=== PATIENT | male | born 1995 | race Caucasian/White ===

== ENCOUNTER 2023-06-16 14:55 | Observation (INO) | payer SELFPAY ==
[2023-06-16] VITALS (7 sets, daily range): BP systolic 134–188; BP diastolic 84–111; PULSE 68–93; RESP 16–17; TEMP 36.2–36.6; O2SAT 93–99; BMI 34.5
--- NOTE | 2023-06-16 15:56 | CT_ITS ---
STUDY: CT ABDOMEN AND PELVIS WITH CONTRAST REASON FOR EXAM: Male, 28 years old. Abdominal pain diarrhea RADIATION DOSAGE (If Supplied By Facility): CTDIvol = ( 14.84 ) mGy, DLP = ( 1320.98 ) mGycm TECHNIQUE: Transaxial images were obtained from the dome of the diaphragm to the symphysis pubis without oral contrast. IV 100mL Isovue-300 was administered. Sagittal and coronal images were reconstructed. Individualized dose optimization techniques were used for this CT. COMPARISON: None. FINDINGS: The visualized lung bases are unremarkable. The visualized portions of the heart are within normal limits. Normal liver. Normal gallbladder and extrahepatic biliary system. Normal spleen. Normal pancreas. Normal bilateral adrenal glands. Normal right kidney. Normal left kidney. Normal visualized stomach. Dilated small intestine with air-fluid levels. Possible transitional point in the distal ileum. This may be related to an ileus. A small bowel obstruction cannot be excluded. Normal colon. The appendix is visualized and appears normal. Normal abdominal aorta. Normal inferior vena cava. Normal retroperitoneum. Normal urinary bladder. Normal abdominal wall. Spondylolysis of L5. CT/Abdomen/Pelvis W IV Cont ONLY IMPRESSION: Dilated small intestine with air-fluid levels. Possible transitional point in the distal ileum. Follow-up is needed. Electronically Signed: Royer Chopra DO at 16:48 EST ,
--- NOTE | 2023-06-16 15:57 | EDS_ITS ---
HPI HPI - GI History of Present Illness Chief Complaint: Abd Pain Informant: patient and parent Narrative Narrative: 28-year-old male presenting to the emergency room with abdominal pain nausea and diarrhea. Patient states that yesterday evening he began to have back ache and generalized myalgias. This morning he had nausea and generalized abdominal discomfort. He has had some intermittent diarrhea and abdominal cramping. Describes the abdominal discomfort is generalized waxing and waning. Reports a near syncopal episode while trying to have a bowel movement earlier in the day. He states that he has had several episodes where he felt like he needed to have a bowel movement and went to the bathroom but did not go. No fevers. No headache or rashes. He notes that his urine is darker than normal. Patient denies any known medical problems or prior surgeries. He last had Tylenol Motrin this morning. PFSH PFSH Medical History no medical history no medical history Home Medications NK 06/16/23 [History Last Taken Unknown] Allergy/AdvReac Type Severity Reaction Status Date / Time No Known Allergies Allergy Verified 06/16/23 14:58 Surgical History no surgical history no surgical history Social History Smoking Status: Never smoker ROS ROS ED Constitutional Constitutional ED: Reports chills; Denies fever(s) or weight loss Eyes Eyes: Denies change in vision or diplopia ENT ENT ED: Denies ear pain, rhinorrhea or sore throat Cardiovascular Cardiovascular: Denies chest pain, orthopnea, palpitations or racing heartbeat Respiratory/Chest Respiratory/Chest: Denies cough, dyspnea or orthopnea Gastrointestinal Gastrointestinal: Reports abdominal pain, diarrhea and nausea; Denies vomiting Genitourinary Genitourinary ED: Denies dysuria, hematuria or urinary frequency Musculoskeletal Musculoskeletal: Reports back pain and myalgias; Denies arthralgias or neck pain Integumentary Denies abscess or rash Neurologic Neurologic: Denies headache(s) or weakness Psychiatric Psychiatric: Denies anxiety, depression, suicidal ideation or suicidal thoughts Endocrine Endocrinology: Denies polydipsia, polyphagia or polyuria Allergic/Immunologic Allergic/Immunologic ED: Denies mouth swelling, tongue swelling or urticaria EXAM Physical Exam Const Vital Signs: 06/16/23 14:56 06/16/23 16:56 06/16/23 16:56 Temperature 97.2 F L Temperature Source Temporal Pulse Rate 93 87 87 Respiratory Rate 16 16 16 Blood Pressure 148/111 H 151/90 H 151/90 H Blood Pressure Mean 123 110 110 Pulse Ox 99 93 98 Oxygen Delivery Method Room Air Room Air Positive well nourished and well developed General Appearance ED: well developed HEENT Reports normocephalic, head/scalp atraumatic and moist mucous membranes Eyes PERRL and EOMs intact bilaterally Neck no lymphadenopathy, supple and no JVD Resp normal respiratory effort and clear to auscultation bilaterally Cardio regular rate, regular rhythm and no murmurs GI non-distended Auscultation: normoactive bowel sounds Palpation: soft and tender other (Diffuse abdominal tenderness to palpation); Negative for guarding or rebound tenderness present Back/Spine no CVA tenderness and normal ROM Extremity normal to inspection General Extremety ED: Negative for edema General Extremity: Negative for edema Neuro oriented x3 and CN's II-XII intact bilaterally Sensorium / Orientation: alert Motor Exam: strength 5/5 throughout Psych mental status grossly normal Mood & Affect: Negative for depressed or tearful Skin no rashes or lesions noted and no wounds MDM MDM MDM Narrative Medical decision making narrative: Basic blood work showed a slight elevation of ALT and AST. Normal white count of 7.4. Urinalysis was. CT abdomen pelvis shows air-fluid levels and distention of the small bowel. There is liquid in the large intestine. Ileus versus small bowel obstruction. Patient received IV fluids Toradol and Zofran and feels significantly better. I spoke with general surgery who is evaluated the patient. Her plan will be to keep the patient n.p.o. and hydrated tonight. Medicine will be admitting. COVID and influenza were sent and are negative. Of note while reviewing the patient's labs and CT findings he notes that he actually developed myalgias and symptomatology beginning on Friday and Friday. Lab Data Attestation: I reviewed the patient's lab results. Labs: Laboratory Results - last 24 hr 06/16/23 06/16/23 15:00 16:48 WBC 7.4 RBC 5.76 Hgb 16.2 Hct 47.7 MCV 82.8 MCH 28.1 MCHC 34.0 RDW Std Deviation 39.0 RDW Coeff of Bryant 12.9 Plt Count 254 MPV 9.2 Immature Gran % (Auto) 0.300 Neut % (Auto) 82.2 H Lymph % (Auto) 9.5 L [place] % (Auto) 7.6 Eos % (Auto) 0.1 Baso % (Auto) 0.3 Absolute Neuts (auto) 6.1 Absolute Lymphs (auto) 0.70 L Nucleated RBC % 0 Sodium 134 L Potassium 4.1 Chloride 102 Carbon Dioxide 26.0 Anion Gap 6 BUN 14 Creatinine 0.99 Est GFR (MDRD) Af Amer 114 Est GFR (MDRD) Non-Af 94 BUN/Creatinine Ratio 14.1 Glucose 135 H Calcium 9.4 Total Bilirubin 0.60 Direct Bilirubin 0.17 AST 47 H ALT 114 H Alkaline Phosphatase 100 Total Protein 8.2 Albumin 3.6 Globulin 4.6 H Lipase 15 Urine Color Yellow Urine Clarity Clear Urine pH 6.5 Ur Specific [place] 1.010 Urine Protein 30 H Urine Glucose (UA) Normal Urine Ketones 50 H Urine Occult Blood 10 H Urine Nitrite Negative Urine Bilirubin Negative Urine Urobilinogen 1 H Ur Leukocyte Esterase Negative Urine RBC 0-5 SEEN Urine WBC 0 SEEN Ur Squamous Epith Cells 0 SEEN Urine Bacteria 0 SEEN Urine Mucus 0 SEEN Radiography Diagnostic Testing: Clinical Impression(s) from Imaging Studies Abdomen/Pelvis CT 06/16/23 15:56 IMPRESSION: Dilated small intestine with air-fluid levels. Possible transitional point in the distal ileum. Follow-up is needed. Electronically Signed: Royer Chopra DO at 16:48 EST Reading Location ID and State: [facility] / [place] Tel [phone], Service support , Differential Diagnosis Abdominal Pain: Appendicitis, Cholecystitis, Pancreatitis, Bowel obstruction and UTI Management Discussion w/another healthcare provider: Hospitalist and Production Cost Estimator (Surgery ([facility])) Discharge Plan Dx/Rx/DC Orders Clinical Impression: Acute viral syndrome, Diarrhea, Ileus, Abdominal pain Disposition Disposition: Acute Care Hospital [facility]
[2023-06-16] MEDS: Ketorolac 30 MG/ML Syringe IV (16:04)
[2023-06-16] MEDS: 0.9% Normal Saline (1000mL) 1,000 ML 1000 ML IV (16:04)
[2023-06-16] MEDS: Ondansetron 4 MG/2 ML Vial IV (16:05)
[2023-06-16 16:07] LABS: Absolute Neutrophil Count 6.1 X10^3/uL (2.0-7.7); Basophil# 0.02 X10^3/uL; Basophil% 0.3 % (0-1); Eosinophil# 0.01 X10^3/uL; Eosinophils% 0.1 % (0-5); Hematocrit 47.7 % (40-54); Hemoglobin 16.2 g/dL (13.0-16.5); Lymphocyte % 9.5 % (19-41); Mean Corpuscular Hgb 28.1 pg (27.0-32.0); Mean Corpuscular Volume 82.8 fL (80-94); Mean Platelet Vol. 9.2 fl (6.2-12.0); Monocyte# 0.56 X10^3/uL; Monocyte% 7.6 % (0-10); NRBC Flagged by Analyzer 0 % (0-5); Neutrophil # 6.05 X10^3/uL (2.7-7.7); Neutrophil % 82.2 % (47-70); Platelet Count 254 K/mm3 (150-450); RBC Distribution Width CV 12.9 % (11.6-14.6); Red Blood Count 5.76 M/mm3 (4.6-6.2); White Blood Count 7.4 K/mm3 (4.4-11.0)
[2023-06-16 16:22] LABS: AST(SGOT) 47 U/L (15-37); Alanine Aminotransfer ALT/SGPT 114 U/L (16-61); Albumin, Serum 3.6 g/dL (3.2-5.0); Alkaline Phosphatase 100 U/L (45-117); Anion Gap 6 (5-15); BUN 14 mg/dL (7-18); BUN/Creat Ratio 14.1 RATIO (10-20); Bilirubin, Direct 0.17 mg/dL (0.00-0.30); Calcium,Total 9.4 mg/dL (8.5-10.1); Chloride 102 mmol/L (98-107); Creatinine, Serum 0.99 mg/dL (0.70-1.30); EST Glomerular Filtration Rate 94 mL/min (>60); Est Glom Filt Rate - Afr Amer 114 mL/min (>60); Globulin 4.6 g/dL (2.2-4.2); Glucose 135 mg/dL (74-106); Lipase 15 U/L (13-75); Potassium 4.1 mmol/L (3.5-5.1); Protein, Total 8.2 g/dL (6.4-8.2); Sodium Level 134 mmol/L (136-145)
[2023-06-16 16:52] LABS: Bacteria 0 SEEN /hpf (None Seen); Mucous, Urine 0 SEEN /hpf (<or=2+); Squamous Epithelial Cells - UA 0 SEEN /hpf (0-5); White Blood Cells 0 SEEN /hpf (0-5)
[2023-06-16 17:00] LABS: Color, Urine Yellow (Yellow); Glucose, Dipstick Normal (Normal); Ketone-Dipstick 50 mg/dl (Negative); Leukocyte Esterase-Dipstick Negative /ul (Negative); Nitrite-Dipstick Negative (Negative); Occult Blood-Urine 10 /ul (Negative); Protein-Dipstick 30 mg/dl (Negative); Urine Bilirubin Dipstick Negative (Negative); Urine Clarity Clear (Clear); Urine Urobilinogen 1 mg/dl (Normal); Urine pH 6.5 (5.0 - 8.0)
[2023-06-16 17:24] LABS: Red Blood Cells-Urine 0-5 SEEN /hpf (0-5)
--- NOTE | 2023-06-16 17:35 | EX.PCM.CON.S ---
Assessment & Plan Assessment/Plan (1) Ileus: PLAN: The patient had labs which were normal except for a left shift. The patient also had a CT scan which showed dilated small bowel loops with air-fluid level. It was unsure if there was a transition point. There is gas and stool in his colon. Patient has never had any surgery in the past. Patient also says this started several days ago with myalgias and chills so this may be viral. Patient may be having ileus due to viral syndrome. I will check a hepatitis panel and he is also being checked for COVID and flu. Keep the patient n.p.o. and start IV fluids and recheck a KUB in the morning. Continue to monitor. Acosta Sharma MD Pager: [facility] [address] [place] [address], [address] [place] [address] Office: HPI Consult Data Date of Consult: 06/16/23 HPI Narrative HPI Narrative: MICA HALEY, is a 28 M who presents with abdominal pain. Patient says this started on Friday when he started experiencing back pain and chills. He does report that he has a cough that he says is nonproductive. He says that he does not have objective fever. He says that this morning his abdomen started hurting and he became nauseous with no vomiting. He said he had 3 bouts of diarrhea this morning and another one later this morning. He has been passing occasional gas throughout the day. He reports abdominal pain is diffuse and not localized. Patient also had a syncopal episode or near syncopal episode. [facility] Medical History no medical history Allergy/AdvReac Type Severity Reaction Status Date / Time No Known Allergies Allergy Verified 06/16/23 14:58 Surgical History no surgical history Social History Smoking Status: Never smoker ROS Constitutional Constitutional: Reports anorexia, chills and fatigue; Denies fever(s) Eyes Eyes: Denies change in vision ENT HEENT: Denies abnormal hearing Cardiovascular Cardiovascular: Denies chest pain Respiratory/Chest Respiratory/Chest: Reports cough; Denies dyspnea, productive cough or shortness of breath at rest Gastrointestinal Gastrointestinal: Reports abdominal pain, bloating, diarrhea and nausea; Denies change in bowel habits, rectal bleeding or vomiting Genitourinary Genitourinary: Denies change in urinary stream Musculoskeletal Musculoskeletal: Denies abnormal gait Integumentary Integumentary: Denies jaundice Neurologic Neurologic: Reports dizziness Psychiatric Psychiatric: Denies anxiety Endocrine Endocrinology: Denies flushing Lab / Micro Data 06/16/23 15:00 06/16/23 15:00 Labs: Laboratory Results - last 24 hr 06/16/23 15:00: WBC 7.4, RBC 5.76, Hgb 16.2, Hct 47.7, MCV 82.8, MCH 28.1, MCHC 34.0, RDW Std Deviation 39.0, RDW Coeff of Bryant 12.9, Plt Count 254, MPV 9.2, Immature Gran % (Auto) 0.300, Neut % (Auto) 82.2 H, Lymph % (Auto) 9.5 L, [place] % (Auto) 7.6, Eos % (Auto) 0.1, Baso % (Auto) 0.3, Absolute Neuts (auto) 6.1, Absolute Lymphs (auto) 0.70 L, Nucleated RBC % 0, Sodium 134 L, Potassium 4.1, Chloride 102, Carbon Dioxide 26.0, Anion Gap 6, BUN 14, Creatinine 0.99, Est GFR (MDRD) Af Amer 114, Est GFR (MDRD) Non-Af 94, BUN/Creatinine Ratio 14.1, Glucose 135 H, Calcium 9.4, Total Bilirubin 0.60, Direct Bilirubin 0.17, AST 47 H, ALT 114 H, Alkaline Phosphatase 100, Total Protein 8.2, Albumin 3.6, Globulin 4.6 H, Lipase 15 06/16/23 16:48: Urine Color Yellow, Urine Clarity Clear, Urine pH 6.5, Ur Specific [place] 1.010, Urine Protein 30 H, Urine Glucose (UA) Normal, Urine Ketones 50 H, Urine Occult Blood 10 H, Urine Nitrite Negative, Urine Bilirubin Negative, Urine Urobilinogen 1 H, Ur Leukocyte Esterase Negative, Urine RBC 0-5 SEEN, Urine WBC 0 SEEN, Ur Squamous Epith Cells 0 SEEN, Urine Bacteria 0 SEEN, Urine Mucus 0 SEEN Imagaing Radiology Impression Abdomen/Pelvis CT 06/16/23 15:56 IMPRESSION: Dilated small intestine with air-fluid levels. Possible transitional point in the distal ileum. Follow-up is needed. Electronically Signed: Royer Chopra DO at 16:48 EST ,
--- NOTE | 2023-06-16 17:55 | HP.PCM.HOS_ITS ---
HPI - General General Date of Admission: 06/16/23 Date of Service: 06/16/23 Chief Complaint: Abdominal pain, myalgias HPI Narrative MICA HALEY, is a 28 M with history of smokeless tobacco use who presented to [facility] with abdominal pain, nausea, and diarrhea. He has been feeling achy and having generalized malaise as well as some chills and sweats and this morning he had nausea and generalized abdominal discomfort. Also had some intermittent diarrhea with last episode this morning. Abdominal discomfort is generalized and waxing and waning. Had a near syncopal episode while trying to have bowel movement earlier in the day. Has had several periods where he thought he had have a bowel movement but has been unable to. In the ED CT abdomen pelvis showed air-fluid levels and distention of small bowel. He was given Toradol and Zofran and general surgery evaluated. Plan is for n.p.o., fluids, KUB in the a.m. Hospitalist contacted for admission. Evaluated patient at bedside and he reports feeling roughly the same as when he presented for may be slightly better, still is not had bowel movement. Pain in abdomen is still generalized and still feels somewhat achy. Has noted slight sore throat and sli ght dry cough over the past couple of days. Denies any other acute complaints [facility] Medical History no medical history Home Medications NK 06/16/23 [History Last Taken Unknown] Allergy/AdvReac Type Severity Reaction Status Date / Time No Known Allergies Allergy Verified 06/16/23 14:58 Surgical History no surgical history Social History Smoking Status: Never smoker ROS ROS Narrative General: Has felt like he has had chills and sweats HENT: Denies headache, denies stuffy nose, has had slight sore throat EYES: Denies changes in vision Resp: Slight dry cough, denies shortness of breath Cardiac: Denies chest pain GI: Generalized abdominal pain with nausea and diarrhea but no BM since this morning : Has been going often Extremity: Denies swelling MSK: Feels somewhat generally weak Neuro: Denies any numbness/tingling Heme: Denies any bleeding or bruising Skin: Denies rashes Psychiatric: No complaints voiced Vital Signs Vital Signs Vital Signs: 06/16/23 14:56 06/16/23 16:56 06/16/23 16:56 Temperature 97.2 F L Temperature Source Temporal Pulse Rate 93 87 87 Respiratory Rate 16 16 16 Blood Pressure 148/111 H 151/90 H 151/90 H Blood Pressure Mean 123 110 110 Pulse Ox 99 93 98 Oxygen Delivery Method Room Air Room Air Physical Exam Narrative General: Alert, oriented, no apparent distress HEENT: Atraumatic, normocephalic Eyes: Anicteric, normal conjunctiva, extraocular movements grossly intact Neck: Supple Respiratory: Clear to auscultation bilaterally, normal respiratory effort Cardiovascular: Regular rate and rhythm GI: Slightly distended without rebound, guarding, rigidity Extremities: No edema Musculoskeletal: Moving all extremities Neuro: No overt focal neurological deficits Skin: No rashes appreciated Psych: Cooperative Results Lab / Micro Data 06/16/23 15:00 06/16/23 15:00 Labs: Laboratory Results - last 24 hr 06/16/23 15:00: WBC 7.4, RBC 5.76, Hgb 16.2, Hct 47.7, MCV 82.8, MCH 28.1, MCHC 34.0, RDW Std Deviation 39.0, RDW Coeff of Bryant 12.9, Plt Count 254, MPV 9.2, Immature Gran % (Auto) 0.300, Neut % (Auto) 82.2 H, Lymph % (Auto) 9.5 L, [place] % (Auto) 7.6, Eos % (Auto) 0.1, Baso % (Auto) 0.3, Absolute Neuts (auto) 6.1, Absolute Lymphs (auto) 0.70 L, Nucleated RBC % 0, Sodium 134 L, Potassium 4.1, Chloride 102, Carbon Dioxide 26.0, Anion Gap 6, BUN 14, Creatinine 0.99, Est GFR (MDRD) Af Amer 114, Est GFR (MDRD) Non-Af 94, BUN/Creatinine Ratio 14.1, Glucose 135 H, Calcium 9.4, Total Bilirubin 0.60, Direct Bilirubin 0.17, AST 47 H, ALT 114 H, Alkaline Phosphatase 100, Total Protein 8.2, Albumin 3.6, Globulin 4.6 H, Lipase 15 06/16/23 16:48: Urine Color Yellow, Urine Clarity Clear, Urine pH 6.5, Ur Specific [place] 1.010, Urine Protein 30 H, Urine Glucose (UA) Normal, Urine Ketones 50 H, Urine Occult Blood 10 H, Urine Nitrite Negative, Urine Bilirubin Negative, Urine Urobilinogen 1 H, Ur Leukocyte Esterase Negative, Urine RBC 0-5 SEEN, Urine WBC 0 SEEN, Ur Squamous Epith Cells 0 SEEN, Urine Bacteria 0 SEEN, Urine Mucus 0 SEEN Imagaing Radiology Impression Abdomen/Pelvis CT 06/16/23 15:56 IMPRESSION: Dilated small intestine with air-fluid levels. Possible transitional point in the distal ileum. Follow-up is needed. Electronically Signed: Royer Chopra DO at 16:48 EST Reading Location ID and State: [facility] / [place] Tel [phone], Service support , Assessment & Plan Assessment/Plan (1) Abdominal pain: (2) Ileus: (3) Diarrhea: PLAN: Plan #Intestinal ileus -Seen on CT scan -Possibly viral in nature -NPO, IVF -I's and O's -Surgery consult -KUB in the morning -Not presently requiring NG tube #Myalgias, diarrhea, nausea -Additionally a dry cough with some sweats and chills -Sounds to have viral illness in nature -COVID and flu ordered, will also order respiratory panel #Elevated liver function tests -Very slightly elevated, hepatitis panel ordered #DVT ppx: Lovenox subcu Tish Herring MD Charges/Coding Visit Charges Inpatient E&M: 78978 Init Hosp L1
[2023-06-16] MEDS: 0.9% Normal Saline (1000mL) 1,000 ML 100 ML IV (21:11)
[2023-06-16] MEDS: hydrALAZINE 20 MG/ML Vial 10 MG IV (22:15)
[2023-06-17 02:51] VITALS: BP 145/65; PULSE 98; RESP 16; TEMP 36.9; O2SAT 95
--- NOTE | 2023-06-17 05:55 | RAD_ITS ---
INDICATION: ileus EXAMINATION/TECHNIQUE: X-RAY - XR Abdomen 1 View COMPARISON: CT abdomen and pelvis 06/16/2023. FINDINGS: Supine view portable. Moderately dilated small bowel. Similar to the prior day CT. Air noted in the colon, nondilated. Sensitivity for free air limited on supine view. No abnormal mass or calcification is seen. The lung bases were not included. RAD/Abdomen Single View (Portable) IMPRESSION: Dilated small bowel. Pattern may be consistent with ileus versus partial small bowel obstruction. Electronically Signed: Nadine Belcher MD at 8:03 EST ,
[2023-06-17] MEDS: 0.9% Normal Saline (1000mL) 1,000 ML 100 ML IV ×2 (07:02→17:04)
[2023-06-17 07:51] LABS: Absolute Lymphocyte Count 1.26 X10^3/uL (0.83-4.51); Absolute Neutrophil Count 4.2 X10^3/uL (2.0-7.7); Basophil# 0.03 X10^3/uL; Basophil% 0.4 % (0-1); Eosinophil# 0.08 X10^3/uL; Eosinophils% 1.2 % (0-5); Hemoglobin 13.2 g/dL (13.0-16.5); Lymphocyte # 1.26 X10^3/ul (0.83-4.51); Lymphocyte % 18.8 % (19-41); Mean Corpuscular Hgb 28.1 pg (27.0-32.0); Mean Corpuscular Volume 85.1 fL (80-94); Mean Platelet Vol. 9.1 fl (6.2-12.0); Monocyte# 1.16 X10^3/uL; Monocyte% 17.3 % (0-10); NRBC Flagged by Analyzer 0 % (0-5); Neutrophil # 4.18 X10^3/uL (2.7-7.7); Neutrophil % 62.2 % (47-70); Platelet Count 230 K/mm3 (150-450); RBC Distribution Width SD 40.7 fl (35.1-43.9); White Blood Count 6.7 K/mm3 (4.4-11.0)
[2023-06-17 07:52] VITALS: BP 123/84; PULSE 93; RESP 18; TEMP 37.1; O2SAT 96
[2023-06-17 08:22] LABS: ALB/GLOB Ratio 0.8 RATIO (0.9-2.4); AST(SGOT) 32 U/L (15-37); Alanine Aminotransfer ALT/SGPT 77 U/L (16-61); Albumin, Serum 2.8 g/dL (3.2-5.0); Alkaline Phosphatase 75 U/L (45-117); Anion Gap 6 (5-15); BUN 11 mg/dL (7-18); BUN/Creat Ratio 13.1 RATIO (10-20); Chloride 109 mmol/L (98-107); Creatinine, Serum 0.84 mg/dL (0.70-1.30); EST Glomerular Filtration Rate 114 mL/min (>60); Est Glom Filt Rate - Afr Amer 138 mL/min (>60); Estimated Creatinine Clearance 141.14 ml/min; Globulin 3.5 g/dL (2.2-4.2); Glucose 99 mg/dL (74-106); Potassium 3.6 mmol/L (3.5-5.1); Protein, Total 6.3 g/dL (6.4-8.2); Sodium Level 139 mmol/L (136-145)
--- NOTE | 2023-06-17 08:35 | PCM.PN.SRG ---
Subjective Subjective Patient reports he is feeling much better than yesterday. He is not complaining of any abdominal pain or nausea. He says he is not having any chills or muscle aches this morning. He says he did pass some gas and had a small bowel movement. Objective Data Objective Data Vital Signs: Vital Signs Temp Pulse Resp BP Pulse Ox O2 Del Method 98.8 F 93 18 123/84 H 96 Room Air 06/17/23 07:52 06/17/23 07:52 06/17/23 07:52 06/17/23 07:52 06/17/23 07:52 06/17/23 07:52 Oxygen Delivery Method Room Air Weight: 254 lb 10.142 oz Body Mass Index (BMI) 34.5 Intake & Output: Intake and Output for Last 24 Hours 06/15/23 06/16/23 06/17/23 23:59 23:59 23:59 Intake Total 1000 / 1000 985 / 985 Balance 1000 / 1000 985 / 985 Lab / Micro Data 06/17/23 07:27 06/17/23 07:27 Labs: Laboratory Results - last 24 hr 06/16/23 15:00: WBC 7.4, RBC 5.76, Hgb 16.2, Hct 47.7, MCV 82.8, MCH 28.1, MCHC 34.0, RDW Std Deviation 39.0, RDW Coeff of [place] 12.9, Plt Count 254, MPV 9.2, Immature Gran % (Auto) 0.300, Neut % (Auto) 82.2 H, Lymph % (Auto) 9.5 L, [place] % (Auto) 7.6, Eos % (Auto) 0.1, Baso % (Auto) 0.3, Absolute Neuts (auto) 6.1, Absolute Lymphs (auto) 0.70 L, Nucleated RBC % 0, Sodium 134 L, Potassium 4.1, Chloride 102, Carbon Dioxide 26.0, Anion Gap 6, BUN 14, Creatinine 0.99, Est GFR (MDRD) Af Amer 114, Est GFR (MDRD) Non-Af 94, BUN/Creatinine Ratio 14.1, Glucose 135 H, Calcium 9.4, Total Bilirubin 0.60, Direct Bilirubin 0.17, AST 47 H, ALT 114 H, Alkaline Phosphatase 100, Total Protein 8.2, Albumin 3.6, Globulin 4.6 H, Lipase 15 06/16/23 16:48: Urine Color Yellow, Urine Clarity Clear, Urine pH 6.5, Ur Specific [place] 1.010, Urine Protein 30 H, Urine Glucose (UA) Normal, Urine Ketones 50 H, Urine Occult Blood 10 H, Urine Nitrite Negative, Urine Bilirubin Negative, Urine Urobilinogen 1 H, Ur Leukocyte Esterase Negative, Urine RBC 0-5 SEEN, Urine WBC 0 SEEN, Ur Squamous Epith Cells 0 SEEN, Urine Bacteria 0 SEEN, Urine Mucus 0 SEEN 06/17/23 07:27: WBC 6.7, RBC 4.70, Hgb 13.2, Hct 40.0, MCV 85.1, MCH 28.1, MCHC 33.0, RDW Std Deviation 40.7, RDW Coeff of [place] 13.0, Plt Count 230, MPV 9.1, Immature Gran % (Auto) 0.100, Neut % (Auto) 62.2, Lymph % (Auto) 18.8 L, [place] % (Auto) 17.3 H, Eos % (Auto) 1.2, Baso % (Auto) 0.4, Absolute Neuts (auto) 4.2, Absolute Lymphs (auto) 1.26, Nucleated RBC % 0, Sodium 139, Potassium 3.6, Chloride 109 H, Carbon Dioxide 24.0, Anion Gap 6, BUN 11, Creatinine 0.84, Estim Creat Clear Calc 141.14, Est GFR (MDRD) Af Amer 138, Est GFR (MDRD) Non-Af 114, BUN/Creatinine Ratio 13.1, Glucose 99, Calcium 8.0 L, Total Bilirubin 0.40, AST 32, ALT 77 H, Alkaline Phosphatase 75, Total Protein 6.3 L, Albumin 2.8 L, Globulin 3.5, Albumin/Globulin Ratio 0.8 L Micro: Microbiology 06/16/23 17:32 Nasal Secretion SARS-CoV-2 & FLU Antigen (Rapid) - Final Radiography Diagnostic Testing: Radiology Impression Abdomen/Pelvis CT 06/16/23 15:56 IMPRESSION: Dilated small intestine with air-fluid levels. Possible transitional point in the distal ileum. Follow-up is needed. Electronically Signed: Royer Chopra DO at 16:48 EST Reading Location ID and State: [facility] / [place] Tel [phone], Service support , KUB X-Ray 06/17/23 05:55 IMPRESSION: Dilated small bowel. Pattern may be consistent with ileus versus partial small bowel obstruction. Electronically Signed: Nadine Belcher MD at 8:03 EST , Physical Exam Const oriented x3 and no apparent distress Resp normal respiratory effort GI soft to palpation and non-tender Assessment & Plan Assessment/Plan (1) Ileus: PLAN: The patient had an ileus yesterday on CT scan. KUB this morning still shows some dilated bowel but he says that he is feeling much better so we will try clear liquids and see how he tolerates this. Acosta Sharma MD Pager: [facility] [address] [place] [address], [address] [place] [address] Office:
[2023-06-17] MEDS: Enoxaparin 40 MG/0.4 ML Syringe SC (09:30)
--- NOTE | 2023-06-17 09:33 | NURSING ---
pt took PO liquids for breakfast. states abd feels slight distended but no increase in pain, no nausea. denies all needs. encouraged ambulation in hallway as much as possible. family bedside denies all further needs
--- NOTE | 2023-06-17 11:44 | NURSING ---
pt states ambulated hallway again with significant other. denies abd pain. states abd did feel a little tight after ambulation but was able to pass flatus and states passed another small amt a little more formed stool after ambulation. encouraged to continue to ambulate as much as possible. denies all pain, nausea, or other needs.
[2023-06-17 14:08] VITALS: BP 141/88; PULSE 93; RESP 18; TEMP 36.6; O2SAT 98
--- NOTE | 2023-06-17 14:28 | NURSING ---
in to talk with patient and without additional visitor bedside. discussed how pt c/o abd distention, bs remain hypoactive. abd noted sl tender with palpation without significant tenderness otherwise , sl distended-pliable, and no nausea. Discussed conversation with Dr. Sharma regarding POC. pt again encouraged to ambulate
--- NOTE | 2023-06-17 17:04 | NURSING ---
ivf hung. pt denies abd pain at this time. states feels that same as earlier. states feels no more distended than earlier. denies all nausea. states no more BM since noon. denies all further needs at present.
--- NOTE | 2023-06-17 20:00 | PN.HOSP_ITS ---
Reason for Visit Reason for Visit: Diagnoses Ileus, unspecified (06/16/23) Unspecified abdominal pain (06/16/23) Diarrhea, unspecified (06/16/23) Subjective Subjective Patient was seen and examined today, he is up walking around, he said he is pas sing flatus, I talked with general surgery about his care and they said that the patient had a clear liquid diet today but then became bloated afterward. Surgery feels that the patient may have an ileus but they do not know the actual cause of it. Objective Data Objective Data Vital Signs: Vital Signs Temp Pulse Resp BP Pulse Ox O2 Del Method 97.8 F 93 18 141/88 H 98 Room Air 06/17/23 14:08 06/17/23 14:08 06/17/23 14:08 06/17/23 14:08 06/17/23 14:08 06/17/23 14:08 Oxygen Delivery Method Room Air Weight: 115.5 kg Body Mass Index (BMI) 34.5 Intake & Output: Intake and Output for Last 24 Hours 06/15/23 06/16/23 06/17/23 23:59 23:59 23:59 Intake Total 1000 / 1000 3345.00 / 3345.00 Balance 1000 / 1000 3345.00 / 3345.00 Lab / Micro Data 06/17/23 07:27 06/17/23 07:27 Labs: Laboratory Results - last 24 hr 06/17/23 07:27: WBC 6.7, RBC 4.70, Hgb 13.2, Hct 40.0, MCV 85.1, MCH 28.1, MCHC 33.0, RDW Std Deviation 40.7, RDW Coeff of [place] 13.0, Plt Count 230, MPV 9.1, Immature Gran % (Auto) 0.100, Neut % (Auto) 62.2, Lymph % (Auto) 18.8 L, [place] % (Auto) 17.3 H, Eos % (Auto) 1.2, Baso % (Auto) 0.4, Absolute Neuts (auto) 4.2, Absolute Lymphs (auto) 1.26, Nucleated RBC % 0, Sodium 139, Potassium 3.6, Chloride 109 H, Carbon Dioxide 24.0, Anion Gap 6, BUN 11, Creatinine 0.84, Estim Creat Clear Calc 141.14, Est GFR (MDRD) Af Amer 138, Est GFR (MDRD) Non-Af 114, BUN/Creatinine Ratio 13.1, Glucose 99, Calcium 8.0 L, Total Bilirubin 0.40, AST 32, ALT 77 H, Alkaline Phosphatase 75, Total Protein 6.3 L, Albumin 2.8 L, Globulin 3.5, Albumin/Globulin Ratio 0.8 L Micro: Microbiology 06/16/23 17:32 Nasal Secretion SARS-CoV-2 & FLU Antigen (Rapid) - Final Radiography Diagnostic Testing: Radiology Impression KUB X-Ray 06/17/23 05:55 IMPRESSION: Dilated small bowel. Pattern may be consistent with ileus versus partial small bowel obstruction. Electronically Signed: Nadine Belcher MD at 8:03 EST , Physical Exam Const alert, oriented x3, no apparent distress and healthy appearing General Appearance: cooperative, well kempt and well developed Orientation / Consciousness: awake, oriented to person, oriented to place and oriented to time HEENT normocephalic, head/scalp atraumatic and moist oral mucous membranes Eyes PERRL, EOMs intact bilaterally and conjunctivae normal Neck supple, no JVD, thyroid normal and no carotid bruits General: trachea midline Resp normal respiratory effort, no retractions, no use of accessory muscles and clear to auscultation bilaterally Auscultation: Negative for rales, rhonchi or wheezes Cardio regular rate, regular rhythm, S1 normal heart sound, S2 normal heart sound, no murmurs, no rub and no gallops GI GI Narrative: Abdomen is soft to palpation, bowel sounds are diminished, abdomen is nontender Extremity no clubbing, cyanosis or edema Skin no rashes or lesions noted General Skin Exam: no breakdown Neuro oriented x3, CN's II-XII intact bilaterally, moves all extremities, no focal motor deficits and no sensory deficits noted Sensorium / Orientation: awake, alert, oriented to person, oriented to place and oriented to time Speech: speech normal Psych affect normal Assessment & Plan Assessment/Plan (1) Abdominal pain: PLAN: Plan 1. Abdominal pain secondary to ileus-continue IV fluids, surgery is participating in his care #2 mild elevation of liver enzymes-etiology unclear, liver enzymes will be monitored as needed, this elevation probably is not significant but will need to be monitored Total clinical time spent by myself addressing patient's medical issues, reviewing his data, and collaborating with patient's care team: 25-minute Charges/Coding Visit Charges Inpatient E&M: 54937 Subs Hosp L1
[2023-06-17 20:20] VITALS: BP 134/74; PULSE 80; RESP 16; TEMP 36.9; O2SAT 96
[2023-06-18 02:20] VITALS: BP 138/69; PULSE 75; RESP 16; TEMP 36.6; O2SAT 95
[2023-06-18] MEDS: 0.9% Normal Saline (1000mL) 1,000 ML 100 ML IV (02:36)
--- NOTE | 2023-06-18 05:55 | RAD_ITS ---
HISTORY: ileus. TECHNIQUE: XR Abdomen 1 View. COMPARISON: Prior day. FINDINGS: BOWEL GAS PATTERN: Persistent dilatation of small bowel. Air noted in the nondilated colon. FREE AIR: Not assessed on supine view. CALCIFICATIONS: No abnormal calcifications observed. BONES: Unremarkable. SOFT TISSUES: Minimal atelectasis or scarring in the left lung base. RAD/Abdomen Single View (Portable) IMPRESSION: Persistent dilatation of small bowel from partial small bowel obstruction or ileus. Electronically Signed: Clotilde St MD at 8:55 EST ,
[2023-06-18 07:08] LABS: HEPATITIS B SURFACE AG Negative (Negative); Hep C Antibodies Non Reactive (Non Reactive); Hepatitis A IgM Antibody Negative (Negative); Hepatitis B Core AB IgM Negative (Negative)
[2023-06-18] MEDS: Enoxaparin 40 MG/0.4 ML Syringe SC (08:10)
--- NOTE | 2023-06-18 08:11 | PCM.PN.SRG ---
Subjective Subjective Patient reports he had 2 bowel movements. He is not having any abdominal pain. He says he tolerated clears yesterday evening with no bloating sensation. Objective Data Objective Data Vital Signs: Vital Signs Temp Pulse Resp BP Pulse Ox O2 Del Method 98 F 75 16 138/69 H 95 Room Air 06/18/23 02:20 06/18/23 02:20 06/18/23 02:20 06/18/23 02:20 06/18/23 02:20 06/18/23 02:20 Oxygen Delivery Method Room Air Weight: 254 lb 10.142 oz Body Mass Index (BMI) 34.5 Intake & Output: Intake and Output for Last 24 Hours 06/16/23 06/17/23 06/18/23 23:59 23:59 23:59 Intake Total 1000 / 1000 3345.00 / 3345.00 953.33 / 953.33 Balance 1000 / 1000 3345.00 / 3345.00 953.33 / 953.33 Lab / Micro Data 06/17/23 07:27 06/17/23 07:27 Labs: Laboratory Results - last 24 hr 06/16/23 18:40: Hepatitis A IgM Ab Negative, Hep Bs Antigen Negative, Hep B Core IgM Ab Negative, Hepatitis C Ab (EIA) Non Reactive, Hep C Ab Comment Comment 06/17/23 07:27: Sodium 139, Potassium 3.6, Chloride 109 H, Carbon Dioxide 24.0, Anion Gap 6, BUN 11, Creatinine 0.84, Estim Creat Clear Calc 141.14, Est GFR (MDRD) Af Amer 138, Est GFR (MDRD) Non-Af 114, BUN/Creatinine Ratio 13.1, Glucose 99, Calcium 8.0 L, Total Bilirubin 0.40, AST 32, ALT 77 H, Alkaline Phosphatase 75, Total Protein 6.3 L, Albumin 2.8 L, Globulin 3.5, Albumin/Globulin Ratio 0.8 L Micro: Microbiology 06/16/23 17:32 Nasal Secretion SARS-CoV-2 & FLU Antigen (Rapid) - Final Physical Exam Const oriented x3 and no apparent distress Resp normal respiratory effort GI soft to palpation and non-tender Assessment & Plan Assessment/Plan (1) Ileus: PLAN: Patient has ileus of unknown etiology. The patient may have had a viral illness that caused gastroenteritis. Patient had a KUB this morning still shows some dilated small bowel but also gas in the colon. Patient clinically is doing well with normal bowel function says he had 2 bowel movements and he is doing well with no pain. He says he tolerated clears no bloating. I will advance him to regular diet and see how he handles this and if he tolerates this he may be discharged home. Acosta Sharma MD Pager: [facility] [place] [address] [place] [address], [address] [place] [address] Office:
[2023-06-18 09:11] VITALS: BP 143/100; PULSE 90; RESP 16; TEMP 36.4; O2SAT 99
--- NOTE | 2023-06-18 10:32 | DCINST_ITS ---
Discharge Instructions Diet Discharge Diet: No restrictions Activity Discharge Activity: Return to Normal Activity Weight Bearing Status: Full weight bearing Follow Up Care Test Results: Test results from this visit will be discussed in further detail at your follow- up appointment, if applicable. Discharge Plan Admission Admit Date/Time: 06/16/23 18:00 Primary Reason for Your Visit: ileus Attending Provider: Geovanni Santiago Primary Care Provider: Care Physician,No Primary Consulting Providers: Acosta Sharma; Tish Herring Discharge Orders/Prescriptions Prescriptions: No Action NK Referrals / Follow Up: Care Physician,No Primary [Primary Care Provider] - NOT,DEFINED [Non-Staff] - Disposition Disposition (needs filled in before D/C Order can be placed): Home, Self Care
--- NOTE | 2023-06-18 10:33 | PCM.DC.SUM ---
Providers Date of Admission: 06/16/23 Date of Discharge: 06/18/23 Primary Care Physician: Deidre Primary Care Phys Consultations 06/16/23 20:37 Consult: General Surgery Routine Consulting Provider: Acosta Sharma Reason for Consult: abd ileus EMERGENT Consult: No MD Notified: Yes Date Notified: 06/16/23 Time Notified: 18:03 Method of Notification: ED Physician Initiated Reason For Visit: ILLEUS Diagnosis Discharge Diagnosis (1) Ileus: Status: Acute Code(s): K56.7 - Ileus, unspecified Plan 1. Abdominal pain secondary to ileus-continue IV fluids, surgery is participating in his care #2 mild elevation of liver enzymes-etiology unclear, liver enzymes will be monitored as needed, this elevation probably is not significant but will need to be monitored Total clinical time spent by myself addressing patient's medical issues, reviewing his data, and collaborating with patient's care team: 25-minute Medications at Discharge Home Medications NK 06/16/23 Hospital Course Operations None Procedures None Summary of Care Provided Minutes Spent on Discharge: 30 Hospital Course: 28-year-old white male was seen in the emergency room at [facility] with complaints of abdominal pain, nausea, and diarrhea. Patient also complained of generalized myalgias. Patient denied any fever. Work-up in the emergency room revealed a normal white blood cell count, there was a slight elevation of his ALT and AST, CT of the abdomen pelvis showed air-fluid levels in the distention small bowel with liquid in the large intestine, it was read out as an ileus versus small bowel obstruction. Patient received IV fluids, Toradol, and Zofran and felt better, general surgery was contacted from the emergency room and advised the patient to be n.p.o. and admission to medicine service, patient was placed in observation status on MedSurg 3, he was given IV fluids and analgesics. He was seen in consultation by general surgery who did not recommend any additional studies. Patient's abdominal pain and diarrhea resolved, he was passing flatus and had bowel movements. On 06/18/2023, patient was seen and examined: On examination he appeared in good health and spirits. Vital signs as documented. Skin warm and dry and without overt rashes. Neck without JVD, neck was supple, trachea midline, thyroid was normal. Lungs clear bilaterally, normal air movement was noted. Heart exam notable for regular rhythm, normal sounds and absence of murmurs, rubs or gallops. Abdomen unremarkable and without evidence of organomegaly, masses, or abdominal aortic enlargement. Bowel sounds are present, abdomen is not distended. Extremities nonedematous, no cyanosis was noted, no clubbing was noted. Neuro: Cranial nerves II through XII are grossly intact, no focal motor deficits were noted, sensation to light touch and pinprick intact, motor exam 5/5 throughout. Psych: Patient is alert and oriented x3, he does not appear anxious or depressed, he does not appear agitated. Patient appears stable for discharge on 06/18/2023 in stable condition. Weight / BMI Weight Weight: 115.5 kg Body Mass Index (BMI) 34.5 ABG / Lab / Microbiology Data 06/17/23 07:27 06/17/23 07:27 Laboratory: Laboratory Results - last 24 hr 06/16/23 18:40: Hepatitis A IgM Ab Negative, Hep Bs Antigen Negative, Hep B Core IgM Ab Negative, Hepatitis C Ab (EIA) Non Reactive, Hep C Ab Comment Comment Microbiology: Microbiology 06/16/23 17:32 Nasal Secretion SARS-CoV-2 & FLU Antigen (Rapid) - Final Radiography Diagnostic Testing: Radiology Impression KUB X-Ray 06/18/23 05:55 IMPRESSION: Persistent dilatation of small bowel from partial small bowel obstruction or ileus. Electronically Signed: Clotilde St MD at 8:55 EST Reading Location ID and State: [address] [place] [address] Tel , Service support , D/C Instructions Discharge Diet: No restrictions Weight Bearing Status: Full weight bearing Meaningful Use Info Meaningful Use Diagnoses (Choose all that apply): None applicable Discharge Plan Admission Admit Date/Time: 06/16/23 18:00 Primary Reason for Your Visit: ileus Attending Provider: Geovanni Santiago Primary Care Provider: Care Physician,No Primary Consulting Providers: Acosta Sharma; Tish Herring Discharge Orders/Prescriptions Prescriptions: No Action NK Referrals / Follow Up: Care Physician,No Primary [Primary Care Provider] - NOT,DEFINED [Non-Staff] - Disposition Disposition (needs filled in before D/C Order can be placed): Home, Self Care Charges/Coding Visit Charges Inpatient E&M: 43608 Disch Hosp
== END 2023-06-18 10:51 | disposition home or self-care (01) ==
LOC: ED 17:36 → MS3 18:53
PROVIDERS: Surgery; Admitting Provider Internal Medicine; Emergency Provider Emergency Medicine; Visit Provider Internal Medicine
DX: K56.7 Ileus, unspecified (principal); F17.220 Nicotine dependence, chewing tobacco, uncomplicated; B34.9 Viral infection, unspecified; R94.5 Abnormal results of liver function studies
CPT/HCPCS: 36415; 74018; 74177; 80048; 80053; 80074; 80076; 81001; 83690; 85025; 87428; 96372; 96374; 96375; 96376; 99221; 99284; J7030; Q9967; A4216; G0378; J2405